=== PATIENT | male | born 1935 | race Caucasian/White ===

== ENCOUNTER 2020-11-01 06:24 | Day surgery (SDC) | payer OTHER, SELFPAY ==
[2020-11-01 06:44] VITALS: BP 167/82; PULSE 70; RESP 16; TEMP 36.2; O2SAT 97
--- NOTE | 2020-11-01 06:54 | ANES.PREOP_ITS ---
General Info Date of Service Date Performed: 11/01/20 Height: 5 ft 4.75 in Weight: 82.3 kg Body Mass Index (BMI): 30.4 Surgical Procedure: Operation Date: 11/01/20 07:40 Proposed Procedures Side Surgeon p Cataract Extraction with IOL Implant Left Bubba Bradshaw MD Meds Allergies and Home Medications Allergies Allergy/AdvReac Type Severity Reaction Status Date / Time atorvastatin AdvReac Intermediate JOINT PAIN Verified 11/01/20 06:41 Home Medication Medication Instructions Recorded zoster vaccine live (PF) [Zostavax 19,400 unit SQ ONCE #1 vial 09/28/16 Vial] Chromium Ricolinate 200 MG 1 tab PO DAILY 10/05/20 New Chapter Mens Multivitamin 1 tab PO DAILY 10/05/20 New Chapter Tumeric 1 tab PO DAILY 10/05/20 Tri-Flex 8557-7454-657-100-100 2 cap PO DAILY 10/05/20 ascorbic acid (vitamin C) 250 mg 500 mg PO DAILY tab 10/05/20 chewable tablet cholecalciferol (vitamin D3) 50 100 mcg PO DAILY cap 10/05/20 mcg (2,000 unit) capsule omega 6-lup-zie-fish oil 1,200 mg 2 cap PO DAILY cap 10/05/20 (144 mg-216 mg) capsule vitamin B complex-folic acid 50 1 tab PO DAILY tab 10/05/20 mcg tablet zinc 50 mg tablet 50 mg PO DAILY 10/05/20 Current Visit Medications: Current Medications Generic Name Dose Route Start Last Admin Trade Name Freq PRN Reason Stop Dose Admin Acetaminophen 1,000 mg 11/01/20 06:00 Acetaminophen 500 Mg Tab PO Q4H PRN PRN Miscellaneous Medication 0 ml 11/01/20 06:00 Prednisolone 1%, Moxifloxacin 0.5%, Nepafenac 0.1% 5ml Btl OS DIRECTED [facility] Miscellaneous Medication 0 ml 11/01/20 06:00 Tropicam./Phenyleph. 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 Diabetes mellitus 04/10/12 E11.9 Other and unspecified hyperlipidemia 09/04/12 E78.5 Primary malignant neoplasm of prostate 04/10/12 C61 Cataract H26.9 Nuclear sclerotic cataract of left eye H25.12 Medical History Medical History (Updated 11/01/20 @ 06:39 by Carlin Art) Diabetes insipidus Surgical History Surgical History (Updated 11/01/20 @ 06:40 by Carlin Art) History of cholecystectomy Tobacco Smoking/Tobacco Use Status: Former Tobacco Use Alcohol Alcohol Intake: never Substance Use Substance use: Never Substance use type: does not use Vital Signs and Lab Results Vital Signs Most Recent Vital Signs in EMR: Most Recent Vital Signs Temp Pulse Resp BP Pulse Ox 36.2 C L 70 16 167/82 H 97 11/01/20 06:44 11/01/20 06:44 11/01/20 06:44 11/01/20 06:44 11/01/20 06:44 Lab Results Blood Type / Crossmatch: No Data to Display Complete Blood Count: No Data to Display Complete Metabolic Panel: Hemoglobin A1c 9.4 % (4.5-5.7) H 10/05/20 15:40 10/05/20 Liver Function Panel: No Data to Display Coagulation Panel: No Data to Display Cardiac Panel: No Data to Display Arterial Blood Gas: No Data to Display Venous Blood Gas: No Data to Display Pancreas Panel: No Data to Display Thyroid Panel: 2 No Data to Display Infectious Disease: No Data to Display Blood Cultures: No Data to Display Toxicology Panel: No Data to Display Anesthesia Assessment and Plan Anesthesia History Personal History: No History of Anesthesia Complications Family History: No Family History of Anesthesia Complications Exercise Tolerance Exercise Tolerance: Metabolic Equivalents>4 Cardiac & Pulmonary Exam Cardiac Exam: Normal S1/S2 Heart Sounds Pulmonary Exam: Clear Bilateral Breath Sounds Airway Exam Known Difficult Airway: No Mallampati Class: 2 Mouth Opening: Normal (> 3cm) Thyromental Distance: Greater than 3 cm Neck Range of Motion: Limited ROM Neck Circumference: Thick Teeth Condition: Removable Dentures/Plates Lower ASA Classification ASA Score: ASA 2 Emergency Case?: No NPO Status NPO Status: NPO Clears >2 hours, Solids >8 hours Anesthesia Plan Resuscitation Status: Full Code Anesthesia Technique: MAC Anesthesia Airway Planned: Natural Airway Monitors Used: Standard Monitors
[2020-11-01] MEDS: Tropicam./Phenyleph. (1/2.5%) 5 ML BTL OS ×3 (07:00→07:10)
[2020-11-01 07:07] VITALS: BMI 30.4
--- NOTE | 2020-11-01 07:15 | W.ANESPOSTOP ---
Postoperative Evaluation Date, Time and Location Date Performed: 11/01/20 Time Performed: : Patient Location: Day Surgery Unit Vital Signs Most Recent Imported Vital Signs: Most Recent Vital Signs Temp Pulse Resp BP Pulse Ox 36.2 C L 70 16 167/82 H 97 11/01/20 06:44 11/01/20 06:44 11/01/20 06:44 11/01/20 06:44 11/01/20 06:44 Most Recent Manually Entered Vital Signs: Adult Blood Pressure: 167/82 Heart Rate: 70 Respirations: 18 Oxygen Saturation (%): 97 Temperature (C): 36.2 C Pain Score (0-10 Scale): 0 Pain Score Most Recent Pain Score: Most Recent Pain Score Pain Level 0 11/01/20 06:44 Assessment Mental Status: Awake (Alert & Oriented to Patient Baseline) Airway and Respiratory Function: Patent airway with normal (patient baseline) respiratory exam Cardiovascular Function: Hemodynamically Stable Hydration Status: Adequately Hydrated Nausea & Vomiting: No Nausea or Vomiting Pain: Pt. Denies Any Pain Peripheral Nerve Block: Patient did not receive a nerve block
[2020-11-01] MEDS: Lidocaine 2% Jelly 6 ML SYR (07:30)
[2020-11-01] MEDS: Balanced Salt Soln.-PLUS 500 ML BAG (07:30)
[2020-11-01] MEDS: Povidone-Iodine Ophth 30 ML BTL (07:30)
[2020-11-01] MEDS: Tetracaine 0.5% 4 ML BTL OS (07:31)
[2020-11-01] MEDS: Lidocaine 1% Pres-Free 5 ML VIAL (07:31)
[2020-11-01] MEDS: Duovisc Viscoelastic System EACH 1 EACH (07:32)
--- NOTE | 2020-11-01 08:02 | ROE_ITS ---
Date of service: 11/01/20 Time of Service: 08:03 Operative Note Operative Note DATE OF PROCEDURE: 11/01/20 POST-OP DIAGNOSIS: same PROCEDURE: Cataract extraction using phacoemulsification with intraocular lens implant, left eye SURGEON: Bubba Bradshaw ANESTHESIA TYPE: Local By Surgeon and MAC Refer to Anesthesia Record PATHOLOGY: none sent COMPLICATIONS: None Patient was transported to: same day Patient's condition: stable Implants: Sohail Clareon [id number] Indications: Progressive decreased vision due to cataract, left eye Procedure Description: CATARACT SURGERY OPERATIVE REPORT PREOPERATIVE DIAGNOSIS: Nuclear cataract, left eye POSTOPERATIVE DIAGNOSIS: Same OPERATION: Cataract extraction using phacoemulsification with posterior chamber intraocular lens implant, left eye. IOL: IOL Auto Tune Up Mechanic/Model: Sohail Clareon [id number] IOL Power: + 24.0 diopters IOL Serial Number: [id number] Optic Diameter: 6.0mm Haptic/Overall Diameter: 13.0mm PHACO INFO: Sohail Century Labsurion Vision System with OZil and Active Fluidics Cumulative Dispersed Energy (CDE): 15.82 seconds SURGEON: Bubba Bradshaw MD, LOREE ANESTHESIA: Monitored Anesthesia Care (MAC), with local sub-tenon's anesthetic infiltration COMPLICATIONS: None SPECIMENS: None INDICATIONS FOR PROCEDURE: The patient is an 84-year-old gentleman with history of diminished visual acuity in his left eye. He has a dense nuclear cataract that has been followed for several years. He is finally symptomatic enough that he desires cataract surgery and attempt to improve and maximize his vision. PROCEDURE: The correct surgical eye was identified and marked as the left eye and the pupil was dilated in the preoperative area using mydriatics and cycloplegics. The dilated pupil size was 7.0 mm. He elected to proceed without oral sedation. The patient was brought to the operating room where cardiopulmonary monitoring was instituted and surgical time-out was performed, confirming the correct operative eye and IOL power. Topical anesthesia was administered and ophthalmic povidone-iodine 5% was instilled into the conjunctival fornices. Lidocaine gel was applied to the cornea and the edvin-ocular area was prepped with Betadine 10% solution and draped in the usual sterile fashion for intraocular surgery, including an aperture drape. A Tegaderm transparent film dressing was cut in half and used to cover the lashes and lid margins. Care was taken to sequester the lashes and lid margins under the Tegaderm dressing. A lid speculum was placed between the lids of the operative eye and the Hillary-Philip operating microscope was maneuvered into position. Robe scissors were then used to make a conjunctival buttonhole approximately 6mm posterior to the limbus in the inferonasal quadrant. Blunt dissection was carried out to expose bare sclera, and a blunt-tipped sub-tenon?s anesthesia cannula was introduced and passed posteriorly along the globe where non- preserved plain lidocaine was injected into posterior sub-Tenon?s space. A sideport knife was used to make a paracentesis port superior/superiortemporally. Intraocular phenylephrine/lidocaine was injected into the anterior chamber. The anterior chamber was then filled with viscoelastic. A 2.4mm keratome knife was used to create a half-thickness groove at the limbus and then to construct a three-plane near-clear corneal tunnel extending 2.0mm into clear cornea in the temporal position. . A flap was raised on the anterior capsule and capsulorhexis forceps were used to complete a continuous curvilinear capsulorhexis of 5.0mm. Balanced salt solution was then used to perform cortical cleaving hydrodissec tion and nuclear hydrodelineation until the lens could be freely rotated within the capsular bag. The lens nucleus was then disassembled and removed within the capsular bag and iris plane using phacoemulsification. Residual cortical material was removed using the 45-degree angled silicone I/A tip with 0.3mm port. The posterior capsule was carefully polished to remove as much residual lens epithelial cells as safely possible. The capsular bag was then inflated and the anterior chamber deepened with viscoelastic. The lens implant described above was inserted into the capsular bag using the Sohail Autonome injector. A Kuglen hook was used to dial the IOL into position. Residual viscoelastic was then removed first from posterior to the IOL, then from the anterior chamber using the I/A handpiece. The lens implant was noted to center nicely within the capsular bag. The incisions were stromally hydrated, and the anterior chamber was reformed using BSS. Then 0.5cc of moxifloxacin 1.0mg/ml were injected into the capsular bag and anterior chamber. The incisions were checked with a Weck spear and found to be secure. Several drops of ophthalmic povidone-iodine 5% were then applied to the eye followed by two drops of Imprimis combination prednisolone/moxifloxacin/nepafenac solution. The drapes were removed and a clear plastic protective eye shield was placed over the eye. The patient was then returned to Same Day Surgery in stable condition.
--- NOTE | 2020-11-01 08:02 | W.PM.DSUDISC ---
Discharge Plan Disposition Patient Disposition: HOME Condition: Good Discharge Details Attending Provider: Bubba Bradshaw Primary Care Provider: Sarah Varela Home Meds and New Rx's Prescriptions: No Action New Chapter Mens Multivitamin 1 tab PO DAILY RF: 0 New Chapter Tumeric 1 tab PO DAILY RF: 0 Balanced B-50 Complex (folic) 50 mcg tablet 1 tab PO DAILY RF: 0 ascorbic acid (vitamin C) 250 mg tablet,chewable 500 mg PO DAILY RF: 0 cholecalciferol (vitamin D3) 50 mcg (2,000 unit) capsule 100 mcg PO DAILY RF: 0 omega 9-lhj-aju-fish oil [Fish Oil] 1,200 (144-216) mg capsule 2 cap PO DAILY RF: 0 Chromium Ricolinate 200 MG capsule 1 tab PO DAILY RF: 0 Tri-Flex 1716-8532-450-100-100 capsule 2 cap PO DAILY RF: 0 zinc 50 mg tablet 50 mg PO DAILY RF: 0 Zostavax (PF) 19,400 UNIT/0.65 ML suspension for reconstitution 19,400 unit SQ ONCE Qty: 1 RF: 0 Discharge Instructions Stand Alone Forms: Post-op Topical Cataract, Keshav Dykes (DSU) Discharge Orders Discharge Orders: Discharge Order (Routine); Ordered 11/01/20 Ordered By: Bubba Bradshaw DS: Diagnosis Discharge Diagnosis (1) Nuclear sclerotic cataract of left eye: Status: Resolved
[2020-11-01 08:18] VITALS: BP 142/76; PULSE 77; RESP 16; TEMP 36.6; O2SAT 95
[2020-11-01 08:21] VITALS: BP 167/82; PULSE 70; RESP 18; TEMPC 36.2; O2SAT 97
== END 2020-11-01 08:28 | disposition home or self-care (01) ==
PROVIDERS: PCP Nurse Practitioner; Visit Provider Ophthalmology
PROC: (CPT 66984; principal; 2020-11-01 07:30)
DX: H25.12 Age-related nuclear cataract, left eye (principal)
CPT/HCPCS: 66984; V2632

== ENCOUNTER 2020-11-15 07:15 | Day surgery (SDC) | payer OTHER, SELFPAY ==
[2020-11-15] MEDS: Tropicam./Phenyleph. (1/2.5%) 5 ML BTL OD ×3 (07:41→07:53)
[2020-11-15 07:49] VITALS: BP 138/90; PULSE 73; RESP 16; TEMP 35.8; O2SAT 99
--- NOTE | 2020-11-15 08:01 | W.ANESPRE ---
General Info Date of Service Date Performed: 11/15/20 Height: 5 ft 4.75 in Weight: 79.4 kg Body Mass Index (BMI): 29.3 Surgical Procedure: Operation Date: 11/15/20 09:40 Proposed Procedures Side Surgeon p Cataract Extraction with IOL Implant Right Bubba Bradshaw MD Meds Allergies and Home Medications Allergies Allergy/AdvReac Type Severity Reaction Status Date / Time atorvastatin AdvReac Intermediate JOINT PAIN Verified 11/15/20 07:41 Home Medication Medication Instructions Recorded zoster vaccine live (PF) [Zostavax 19,400 unit SQ ONCE #1 vial 09/28/16 Vial] Chromium Ricolinate 200 MG 1 tab PO DAILY 10/05/20 New Chapter Mens Multivitamin 1 tab PO DAILY 10/05/20 New Chapter Tumeric 1 tab PO DAILY 10/05/20 Tri-Flex 8496-8689-115-100-100 2 cap PO DAILY 10/05/20 ascorbic acid (vitamin C) 250 mg 500 mg PO DAILY tab 10/05/20 chewable tablet cholecalciferol (vitamin D3) 50 100 mcg PO DAILY cap 10/05/20 mcg (2,000 unit) capsule omega 7-mfc-qfm-fish oil 1,200 mg 2 cap PO DAILY cap 10/05/20 (144 mg-216 mg) capsule vitamin B complex-folic acid 50 1 tab PO DAILY tab 10/05/20 mcg tablet zinc 50 mg tablet 50 mg PO DAILY 10/05/20 Current Visit Medications: Current Medications Generic Name Dose Route Start Last Admin Trade Name Freq PRN Reason Stop Dose Admin Acetaminophen 1,000 mg 11/15/20 06:00 Acetaminophen 500 Mg Tab PO Q4H PRN PRN Miscellaneous Medication 0 ml 11/15/20 06:00 Prednisolone 1%, Moxifloxacin 0.5%, Nepafenac 0.1% 5ml Btl OD DIRECTED [facility] Miscellaneous Medication 0 ml 11/15/20 06:00 11/15/20 07:53 Tropicam./Phenyleph. 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 Diabetes mellitus 04/10/12 E11.9 Other and unspecified hyperlipidemia 09/04/12 E78.5 Primary malignant neoplasm of prostate 04/10/12 C61 Cataract H26.9 Nuclear sclerotic cataract of left eye H25.12 Nuclear sclerotic cataract of right eye H25.11 Medical History Medical History Diabetes insipidus History of prostate cancer 2011 Surgical History Surgical History History of cataract surgery History of cholecystectomy Tobacco Smoking/Tobacco Use Status: Former Tobacco Use Alcohol Alcohol Intake: never Substance Use Substance use: Never Substance use type: does not use Vital Signs and Lab Results Vital Signs Most Recent Vital Signs in EMR: Most Recent Vital Signs Temp Pulse Resp BP Pulse Ox 35.8 C L 73 16 138/90 99 11/15/20 07:49 11/15/20 07:49 11/15/20 07:49 11/15/20 07:49 11/15/20 07:49 Point of Care Results Point of Care Results: Finger Stick Blood Glucose 206 11/15/20 07:35 Lab Results Blood Type / Crossmatch: No Data to Display Complete Blood Count: No Data to Display Complete Metabolic Panel: No Data to Display Liver Function Panel: No Data to Display Coagulation Panel: No Data to Display Cardiac Panel: No Data to Display Arterial Blood Gas: No Data to Display Venous Blood Gas: No Data to Display Pancreas Panel: No Data to Display Thyroid Panel: No Data to Display Infectious Disease: No Data to Display Blood Cultures: No Data to Display Toxicology Panel: No Data to Display Anesthesia Assessment and Plan Anesthesia History Personal History: No History of Anesthesia Complications Family History: No Family History of Anesthesia Complications Exercise Tolerance Exercise Tolerance: Metabolic Equivalents>4 Pertinent Negatives Pertinent Negatives: No Symptoms of GERD, No Major Cardiovascular Symptoms or Complaints and No Major Pulmonary Symptoms or Complaints Cardiac & Pulmonary Exam Cardiac Exam: Normal S1/S2 Heart Sounds Pulmonary Exam: Clear Bilateral Breath Sounds Airway Exam Known Difficult Airway: No Mallampati Class: 2 Mouth Opening: Normal (> 3cm) Thyromental Distance: Greater than 3 cm Neck Range of Motion: Limited ROM Neck Circumference: Thick Teeth Condition: Removable Dentures/Plates Lower ASA Classification ASA Score: ASA 2 Emergency Case?: No NPO Status NPO Status: NPO Clears >2 hours, Solids >8 hours Anesthesia Plan Resuscitation Status: Full Code Anesthesia Technique: MAC Anesthesia Airway Planned: Natural Airway Monitors Used: Standard Monitors
[2020-11-15 08:13] VITALS: BMI 29.3
[2020-11-15] MEDS: Lidocaine 2% Jelly 6 ML SYR (08:56)
[2020-11-15] MEDS: Tetracaine 0.5% 4 ML BTL OD (08:56)
[2020-11-15] MEDS: Povidone-Iodine Ophth 30 ML BTL (08:56)
[2020-11-15] MEDS: Lidocaine 1% Pres-Free 5 ML VIAL (09:03)
[2020-11-15] MEDS: Duovisc Viscoelastic System EACH 1 EACH (09:09)
[2020-11-15] MEDS: Balanced Salt Soln.-PLUS 500 ML BAG (09:09)
--- NOTE | 2020-11-15 09:28 | W.PM.DSUDISC ---
Discharge Plan Disposition Patient Disposition: HOME Condition: Good Discharge Details Reason For Visit: CATARACT Attending Provider: Bubba Bradshaw Primary Care Provider: Sarah Varela Home Meds and New Rx's Prescriptions: No Action New Chapter Mens Multivitamin 1 tab PO DAILY RF: 0 New Chapter Tumeric 1 tab PO DAILY RF: 0 Balanced B-50 Complex (folic) 50 mcg tablet 1 tab PO DAILY RF: 0 ascorbic acid (vitamin C) 250 mg tablet,chewable 500 mg PO DAILY RF: 0 cholecalciferol (vitamin D3) 50 mcg (2,000 unit) capsule 100 mcg PO DAILY RF: 0 omega 1-kmt-owx-fish oil [Fish Oil] 1,200 (144-216) mg capsule 2 cap PO DAILY RF: 0 Chromium Ricolinate 200 MG capsule 1 tab PO DAILY RF: 0 Tri-Flex 1613-8506-609-100-100 capsule 2 cap PO DAILY RF: 0 zinc 50 mg tablet 50 mg PO DAILY RF: 0 Zostavax (PF) 19,400 UNIT/0.65 ML suspension for reconstitution 19,400 unit SQ ONCE Qty: 1 RF: 0 Discharge Instructions Stand Alone Forms: Post-op Topical Cataract, Keshav Dykes (DSU) Discharge Orders Discharge Orders: Discharge Order (Routine); Ordered 11/15/20 Ordered By: Bubba Bradshaw
--- NOTE | 2020-11-15 09:29 | ROE_ITS ---
Date of service: 11/15/20 Time of Service: 09:29 Operative Note Operative Note DATE OF PROCEDURE: 11/15/20 PRE-OP DIAGNOSIS: Nuclear cataract, right eye POST-OP DIAGNOSIS: same PROCEDURE: Cataract extraction using phacoemulsification with intraocular lens implant, right eye SURGEON: Bubba Bradshaw ANESTHESIA TYPE: Local By Surgeon and MAC Refer to Anesthesia Record ESTIMATED BLOOD LOSS: 0 PATHOLOGY: none sent COMPLICATIONS: None Patient was transported to: same day Patient's condition: stable Implants: Sohail Clareon [id number] Indications: Progressive decreased vision due to cataract, right eye Procedure Description: CATARACT SURGERY OPERATIVE REPORT PREOPERATIVE DIAGNOSIS: Nuclear cataract, right eye POSTOPERATIVE DIAGNOSIS: Same OPERATION: Cataract extraction using phacoemulsification with posterior chamber intraocular lens implant, right eye. IOL: IOL Mentally Retarded Teacher/Model: Sohail Clareon [id number] IOL Power: + 25.5 diopters IOL Serial Number: [id number] Optic Diameter: 6.0mm Haptic/Overall Diameter: 13.0mm PHACO INFO: SohailThird Millennium Material[employer]ion Vision System with OZil and Active Fluidics Cumulative Dispersed Energy (CDE): 17.46 seconds SURGEON: Bubba Bradshaw MD, LOREE ANESTHESIA: Monitored Anesthesia Care (MAC), with local sub-tenon's anesthetic infiltration COMPLICATIONS: None SPECIMENS: None INDICATIONS FOR PROCEDURE: The patient is an 84-year-old gentleman with history of diminished visual acuity in both eyes secondary to the development of dense bilateral nuclear cataract. He has shallow anterior chambers and narrow anterior chamber angles. He has already undergone cataract surgery in the left eye and is doing well postoperatively. He now presents for cataract surgery in the right eye. PROCEDURE: The correct surgical eye was identified and marked as the right eye and the pupil was dilated in the preoperative area using mydriatics and cycloplegics. The dilated pupil size was 6.5 mm. He elected to proceed without oral sedation. The patient was brought to the operating room where cardiopulmonary monitoring was instituted and surgical time-out was performed, confirming the correct operative eye and IOL power. Topical anesthesia was administered and ophthalmic povidone-iodine 5% was instilled into the conjunctival fornices. Lidocaine gel was applied to the cornea and the edvin-ocular area was prepped with Betadine 10% solution and draped in the usual sterile fashion for intraocular surgery, including an aperture drape. A Tegaderm transparent film dressing was cut in half and used to cover the lashes and lid margins. Care was taken to sequester the lashes and lid margins under the Tegaderm dressing. A lid speculum was placed between the lids of the operative eye and the Hillary-Philip operating microscope was maneuvered into position. Robe scissors were then used to make a conjunctival buttonhole approximately 6mm posterior to the limbus in the inferonasal quadrant. Blunt dissection was carried out to expose bare sclera, and a blunt-tipped sub-tenon?s anesthesia cannula was introduced and passed posteriorly along the globe where non- preserved plain lidocaine was injected into posterior sub-Tenon?s space. A sideport knife was used to make a paracentesis port inferiortemporally. Intraocular phenylephrine/lidocaine was injected into the anterior chamber. The anterior chamber was then filled with viscoelastic. A 2.4mm keratome knife was used to create a half-thickness groove at the limbus and then to construct a three-plane near-clear corneal tunnel extending 2.0mm into clear cornea in the superiortemporal position. . A flap was raised on the anterior capsule and capsulorhexis forceps were used to complete a continuous curvilinear capsulorhexis of 4.8 mm. The anterior chamber was noted to be quite shallow. Balanced salt solution was then used to perform cortical cleaving hydrodissection and nuclear hydrodelineation until the lens could be freely rotated within the capsular bag. The lens nucleus was then disassembled and r emoved within the capsular bag and iris plane using phacoemulsification. Additional viscoelastic was injected into the anterior chamber to protect the corneal endothelium during nucleus removal. Residual cortical material was removed using the I/A handpiece. The posterior capsule was carefully polished to remove as much residual lens epithelial cells as safely possible. The capsular bag was then inflated and the anterior chamber deepened with viscoelastic. The lens implant described above was inserted into the capsular bag using the Sohail Autonome Injector. A Kuglen hook was used to dial the IOL into position. Residual viscoelastic was then removed first from posterior to the IOL, then from the anterior chamber using the I/A handpiece. The lens implant was noted to center nicely within the capsular bag. The incisions were stromally hydrated, and the anterior chamber was reformed using BSS. Then 0.5cc of moxifloxacin 1.0mg/ml were injected into the capsular bag and anterior chamber. The incisions were checked with a Weck spear and found to be secure. Several drops of ophthalmic povidone-iodine 5% were then applied to the eye followed by two drops of Imprimis combination prednisolone/moxifloxacin/nepafenac solution. The drapes were removed and a clear plastic protective eye shield was placed over the eye. The patient was then returned to Same Day Surgery in stable condition.
[2020-11-15 09:34] VITALS: BP 126/81; PULSE 71; RESP 18; TEMP 36.1; O2SAT 96
--- NOTE | 2020-11-16 09:13 | W.ANESPOSTOP ---
Postoperative Evaluation Date, Time and Location Date Performed: 11/16/20 Time Performed: 09:13 Patient Location: Day Surgery Unit Vital Signs Most Recent Imported Vital Signs: Most Recent Vital Signs Temp Pulse Resp BP Pulse Ox 36.1 C L 71 18 126/81 96 11/15/20 09:34 11/15/20 09:34 11/15/20 09:34 11/15/20 09:34 11/15/20 09:34 Pain Score Most Recent Pain Score: Most Recent Pain Score Pain Level 0 11/15/20 09:34 Assessment Mental Status: Awake (Alert & Oriented to Patient Baseline) Airway and Respiratory Function: Patent airway with normal (patient baseline) respiratory exam Cardiovascular Function: Hemodynamically Stable Hydration Status: Adequately Hydrated Nausea & Vomiting: No Nausea or Vomiting Pain: Pt. Denies Any Pain Peripheral Nerve Block: Patient did not receive a nerve block
== END 2020-11-15 09:40 | disposition home or self-care (01) ==
PROVIDERS: PCP Nurse Practitioner; Visit Provider Ophthalmology
PROC: (CPT 66984; principal; 2020-11-15 09:30)
DX: H25.11 Age-related nuclear cataract, right eye (principal)
CPT/HCPCS: 66984; V2632

== ENCOUNTER 2024-11-07 13:12 | Emergency (ER) | payer MEDICARE, SELFPAY ==
[2024-11-07] VITALS (44 sets, daily range): BP systolic 89–138; BP diastolic 37–86; PULSE 79–111; RESP 12–20; TEMP 37.5–38.6; O2SAT 94–99
--- NOTE | 2024-11-07 13:15 | RT.EKG_ITS ---
APPROVED REPORT Exam: Resting ECG Reason for Exam: dizziness Patient Location: E HR:108 bpm ECG Measurements Heart Rate [address] 191 P 62 QRSd 140 QRS -72 QT 350 T 36 QTc 471 Conclusion Sinus tachycardia...rate> 99 Right bundle branch block...QRSd>120, terminal axis(90,270)
--- NOTE | 2024-11-07 13:43 | W.ED.GENAD ---
Discharge Plan Discharge Details Chief Complaint: Dizzy/Sync Primary Care Provider: Sola,Local ED Provider: Faiza Mosquera Home Meds and New Rx's Prescriptions: No Action New Chapter Mens Multivitamin 1 tab PO DAILY New Chapter Tumeric 1 tab PO DAILY Balanced B-50 Complex (folic) 50 mcg tablet 1 tab PO DAILY Patient Comments: [facility] Brand ascorbic acid (vitamin C) 250 mg tablet,chewable 500 mg PO DAILY cholecalciferol (vitamin D3) 50 mcg (2,000 unit) capsule 100 mcg PO DAILY Patient Comments: [facility] Brand omega 4-tva-txj-fish oil [Fish Oil] 1,200 (144-216) mg capsule 2 cap PO DAILY Chromium Ricolinate 200 MG capsule 1 tab PO DAILY Tri-Flex [id number] capsule 2 cap PO DAILY zinc 50 mg tablet 50 mg PO DAILY Zostavax (PF) 19,400 UNIT/0.65 ML suspension for reconstitution 19,400 unit SQ ONCE Qty: 1 Rx Instructions: and administer, please tamsulosin [Flomax] 0.4 mg capsule 0.4 mg PO DAILY gabapentin 300 mg capsule 300 mg PO BID metformin 500 mg tablet 500 mg PO BID HPI General Date/Time Provider Initiated Documentation: 11/07/24 13:25. Limitations to Documentation: no limitations. Information obtained by: patient, family () and RN notes reviewed. History of Present Illness 88 year old M presents to the emergency department with the chief complaint of pre-syncope, weakness, general unwell, described as moderate and similar to prior episodes (hx of ICH and similar prsentation with covid), Patient started experiencing this hour(s) (1) and it has been constant. No relieving factors improve symptom(s), No exacerbating factors reported . Patient notes diaphoresis, malaise and weakness; denies chest pain, cough, fever/chills, headaches, loss of appetite, nausea/vomiting, rash, seizure, shortness of breath and syncope. Patient did receive the following treatments prior to arrival, none Related Data Home Medications ?Medication ?Instructions ?Recorded ?Confirmed zoster vaccine live (PF) 19,400 19,400 unit SQ ONCE #1 vial 09/28/16 11/07/24 unit/0.65 mL subcutaneous suspension (Zostavax (PF)) Held on 11/07/24. Instructions: Pt Stopped/Never Started Chromium Ricolinate 200 MG 1 tab PO DAILY 10/05/20 11/07/24 Held on 11/07/24. Instructions: Pt Stopped/Never Started New Chapter Mens Multivitamin 1 tab PO DAILY 10/05/20 11/07/24 New Chapter Tumeric 1 tab PO DAILY 10/05/20 11/07/24 Held on 11/07/24. Instructions: Pt Stopped/Never Started Tri-Flex [id number] 2 cap PO DAILY 10/05/20 11/07/24 ascorbic acid (vitamin C) 250 mg 500 mg PO DAILY 10/05/20 11/07/24 chewable tablet cholecalciferol (vitamin D3) 50 100 mcg PO DAILY 10/05/20 11/07/24 mcg (2,000 unit) capsule omega 5-uqm-ybo-fish oil 1,200 mg 2 cap PO DAILY 10/05/20 11/07/24 (144 mg-216 mg) capsule (Fish Oil) Held on 11/07/24. Instructions: Pt Stopped/Never Started vitamin B complex-folic acid 50 1 tab PO DAILY 10/05/20 11/07/24 mcg tablet (Balanced B-50 Complex (with folic acid)) zinc 50 mg tablet 50 mg PO DAILY 10/05/20 11/07/24 Held on 11/07/24. Instructions: Pt Stopped/Never Started gabapentin 300 mg capsule 300 mg PO BID 11/07/24 11/07/24 metformin 500 mg tablet 500 mg PO BID 11/07/24 11/07/24 tamsulosin 0.4 mg capsule (Flomax) 0.4 mg PO DAILY 11/07/24 11/07/24 Allergies Allergy/AdvReac Type Severity Reaction Status Date / Time atorvastatin AdvReac Intermediate JOINT PAIN Verified 11/15/20 07:41 General Stated Complaint: Dizzy/Sync GUY: 2 Review of Systems Constitutional Constitutional: Reports as per HPI, Denies chills and Denies fever(s) Eyes Eyes: Reports as per HPI, Denies blurry vision and Denies change in vision ENT Ears, Nose, Mouth, and Throat: Denies neck pain Cardiovascular Cardiovascular: Reports as per HPI, Denies chest pain, Denies lightheadedness, Denies radiating jaw, neck or arm pain, Denies dyspnea and Denies dyspnea on exertion Respiratory Respiratory: Reports as per HPI, Denies chest congestion, Denies cough, Denies dyspnea and Denies dyspnea on exertion Gastrointestinal Gastrointestinal: Reports as per HPI, Denies abdominal pain, Denies change in bowel habits, Denies nausea and Denies vomiting Genitourinary Genitourinary: Reports system reviewed and no additional complaints, except as documented (denies change in urinary habits) Musculoskeletal Musculoskeletal: Reports as per HPI, Denies back pain, Denies myalgias, Denies muscle cramps, Denies neck pain and Denies numbness Integumentary/Breasts Skin/Breast: Reports as per HPI and Denies rash Neurologic Neurologic: Reports as per HPI, Denies abnormal movements, Denies abnormal speech, Denies behavioral changes, Denies confusion, Denies localized weakness, Denies numbness and Denies sensory deficit Psychiatric Psychiatric: Denies behavioral changes and Denies confusion Exam Const General: cooperative, not healthy appearing, no acute distress, well developed, well groomed, diaphoretic and ill appearing acutely Nutritional Appearance: average body habitus and well nourished Orientation: alert, awake and oriented x3 [facility] Head: normal to inspection, no palpable skull fracture, normocephalic and atraumatic Ears: hearing grossly normal bilaterally, external ears normal and TM's normal bilaterally General nose exam: external nose normal Mouth: oral mucosae normal and moist mucous membranes Throat: posterior oropharynx normal Eyes General: appearance normal, both eyes and all related structures Alignment and Position: alignment normal Periorbital: periorbital findings normal Eyelids: eyelids normal Sclera: sclerae normal Cornea: corneas normal Pupils: PERRL EOM: EOM intact bilaterally Neck Neck: normal visual inspection, full ROM, no lymphadenopathy and no meningeal signs Resp Effort & Inspection: normal respiratory effort, able to speak in complete sentences and no respiratory distress Auscultation: clear to auscultation bilaterally, no rales, no rhonchi and no wheezes Cardio Rate: regular rate Rhythm: regular rhythm Heart Sounds: S1 normal and S2 normal Back/Spine/Pelvis Cervical Spine: normal cervical lordosis and cervical ROM normal Skin General skin exam: no rashes or lesions noted Neuro General: patient alert, patient awake and patient oriented x3 Cranial Nerves: CN's II-XI intact bilaterally Cognition: normal cognition Speech: speech normal Motor: strength not 5/5 throughout (weak in LLE), no pronator drift, no fasciculations, fasciculations (when ttrying to sit up and hold himself, lists to the left) and no pronator drift noted Sensory Exam: no sensory deficits noted Coordination: [id number] test normal, sways with eyes open (sways in seated position) and rapid alternating movement UE normal Extrem General: normal to inspection, capillary refill normal, no pedal edema and no calf tenderness Course Vital Signs Vital signs: Vital Signs Temperature 38.6 C H 11/07/24 13:19 Pulse 107 H 11/07/24 13:19 Respiratory Rate 12 11/07/24 13:19 Blood Pressure 123/76 11/07/24 13:19 Pulse Oximetry 94 11/07/24 13:19 Temperature 38.6 C H 11/07/24 13:19 Temperature Source Oral 11/07/24 13:19 Pulse 107 H 11/07/24 13:19 Respiratory Rate 12 11/07/24 13:19 Blood Pressure 123/76 11/07/24 13:19 Blood Pressure Position Sitting 11/07/24 13:19 Pulse Oximetry 94 11/07/24 13:19 Oxygen Delivery Method Room Air 11/07/24 13:19 Oxygen Flow Rate 0 11/07/24 13:19 Medical Decision Making Patient is a pleasant 88 year old male, brought in by his , with c/c of pre-syncope that began about one hour prior arrival. They report that he was in a grocery store, went to use the restroom and suddenly felt lightheaded. Originally had described some vertiginous-like symptoms but now stating it was more lightheaded like presyncopal. No palpitations or chest pain. Denies any shortness of breath. Became diaphoretic, was able to ambulate out of the bathroom and felt that he looked unwell prompting him to come here. They do report that he has had similar episodes in the past. 1 time he had such an episode he was diagnosed with COVID. Patient also had initially was reported as a spontaneous intracranial hemorrhage a few months ago while in [place], further described as having a UTI with hypertensive emergency. Not completely clear on the history. He denies any headache. No visual changes. He has not noticed any weakness but does state that his balance has been off. However, patient does report that he has had some chronic balance issues but has noted this was worse since the onset of presyncopal seat symptoms about 1 hour prior to arrival. On exam, patient is diaphoretic. He was initially reported to be febrile, rechecked and found to be normal. He does not feel hot to the touch. I did question if he may have had a slight facial droop as the left side of his mouth did seem to come up slightly higher than the right but his reports that this appears normal for him. However, patient does have notable weakness in the left lower extremity than on the right. Has difficulty raising the left off of the bed. When having the patient in a seated position in bed, he also tends to lift to the left and has some jerky fasciculations in bilateral lower extremities. Appears to be working to stay in an upright position. Patient is alert and oriented, communicating well. He does not appear septic. He is not endorsing any recent illness or sick contacts. No change in urinary or bowel habits. Patient does not have any back pain. No abdominal pain. No saddle paresthesias or sensory deficits appreciated. Coordination of the upper extremities is intact. Unclear exactly what is driving his sudden onset of symptoms but the objective findings on my neurologic exam having primarily concern for CVA at this time. With his recent history of ICH, not completely clear on the etiology of this, I am primarily concerned for a hemorrhagic stroke and will move forward with a noncontrast head CT to start. Will obtain labs, EKG. Without any chest discomfort or shortness of breath, find unlikely to be something like ACS, particularly as the patient has not had any symptoms leading up to this. However, will obtain troponins out of abundance of caution, particularly given the patient's diaphoresis and presyncope. ECG was reviewed by Dr. Blackwell. Patient is right bundle branch block, heart rate 108. No evidence to suggest a STEMI. CT reviewed by radiologist: MPRESSION: 1. No acute intracranial process. 2. If there is continued clinical concern, a noncontrast MRI of the brain should be considered for further evaluation. Labs reviewed. No leukocytosis. Stable H&H. CMP without significant abnormality. Glucose is slightly elevated, patient does have a history of diabetes and is on metformin. Troponin within normal limits x 2. Patient reevaluated after CT- no acute bleeding noted. Patient ambulated to the bathroom with myself. the weakness initially appreciated in the LLE has since resolved, he is feeling improved. If this is more central, concern for TIA rather than CVA. No longer eligible for lytics. Radiologist recommends MR if further workup needed- will try to get this completed today. At the end of my shift, care transitioned to oncoming clinician with MRI pending. Patient was negative for flu and COVID. Urinalysis is also pending. He remains hemodynamically stable and has neurologically improved. Likely will require admission for TIA evaluation should no other source be noted. 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 Surgical History (Updated 11/15/20 @ 09:29 by Bubba Bradshaw MD) History of cataract surgery History of cholecystectomy Social History (Updated 10/05/20 @ 15:59 by Fiona Logan RN) Smoking/Tobacco Use Status: Former Tobacco Use Quit Date: 04/16/57 Smoking risk assessment performed?: Yes Alcohol Intake: never Drug use: Never Substance use type: does not use Adopted: No Caregiver/Support person: No Foster care: No Household members: spouse Housing: house Number of Children: 4 number of grandchildren: 7 Education Level: high school current occupation: Retired Pets and animals: No Sexually active: No Current gender identity: male What is your relationship status?: How often do you talk on the phone with friends or family?: three or more times per week How often do you get together with friends or relatives?: twice per week Do you belong to any clubs or organized social groups?: no Panel score (0-1 are the most socially isolated patients): 2 What type of physical activity do you participate in: walking Duration: 15-30 minutes/day Special katelynn needs: No Seatbelt use: always Do you feel safe at home: Yes Do you feel safe in your relationship?: Yes
--- NOTE | 2024-11-07 13:45 | DI.CT_ITS ---
Exam(s) CT HEAD - STROKE PROTOCOL EXAM: CT HEAD - STROKE PROTOCOL CLINICAL HISTORY: left leg weakness, hx of bleed. TECHNIQUE: Imaging Protocol: Axial computed tomography images with coronal and sagittal reformatted images were created and reviewed COMPARISON: No exams were available for comparison FINDINGS: Ventricles and Extra axial spaces: Normal in size and morphology for the patient's age. Hemorrhage: None. Cerebral parenchyma: There is an area of encephalomalacia involving the left occipital lobe. There are areas of decreased attenuation in the white matter consistent with chronic microvascular ischemic disease. There is an old lacunar in for in the left basal ganglia. No acute territorial infarct is seen. No acute mass effect is present. Midline shift: None. Brainstem/Cerebellum: Normal. Calvarium: Normal. Visualized Paranasal sinuses/Mastoids: Clear. Soft Tissues: Unremarkable. IMPRESSION: 1. No acute intracranial process. 2. If there is continued clinical concern, a noncontrast MRI of the brain should be considered for further evaluation. RADIATION DOSE DELIVERED: 854.22mGy.cm Total DLP DATA REPOSITORY: All CT scans at this facility are submitted to the National Radiology Data Registry (NRDR) Dose Index Registry (DIR) with the [employer] (A[employer]). RADIATION OPTIMIZATION: All CT scans at this facility use at least one of these dose optimization techniques: automated exposure control; mA and/or kV adjustment per patient size (includes targeted exams where dose is matched to clinical indication); or iterative reconstruction.
--- NOTE | 2024-11-07 13:45 | DI.RAD_ITS ---
Exam(s) XR CHEST 2V PA LATERAL EXAM: XR CHEST 2V PA LATERAL CLINICAL HISTORY: weak, unwell TECHNIQUE: 2D digital imaging was performed of the chest. Two images were obtained. PA and lateral views were obtained. COMPARISON: No exams were available for comparison FINDINGS: MEDIASTINUM: Normal. HEART: Normal. PULMONARY VASCULATURE: Normal. LUNGS: There are no focal consolidating infiltrates present. PLEURAL SPACE: No pleural effusion or pneumothorax. BONE:Within normal limits for the patient's age. OTHER FINDINGS:Normal. IMPRESSION: No acute pulmonary findings. DATA REPOSITORY: RADIATION DOSE DELIVERED:
[2024-11-07 14:22] LABS: Abs Immature Grans 0.04 10^3/uL (0.0-0.06); HCT 40.1 % (40.0-50.0); HGB 13.9 g/dL (13.5-17.5); Immature Grans % 0.4 %; MCH 29.9 pg (27.0-33.0); MCHC 34.7 % (32.0-36.0); MCV 86 fL (80-95); MPV 9.5 fL (8.0-11.0); Platelet Count 139 10^3/uL (130-400); RBC 4.65 10^6/uL (4.36-5.78); RDW 13.4 % (11.8-14.1); RDW-SD 42.4 fL; WBC 9.42 10^3/uL (4.4-10.8)
[2024-11-07 14:42] LABS: ALT 22 U/L (16-63); AST 16 U/L (15-37); Albumin 3.7 g/dL (3.4-5.0); Alkaline Phosphatase 79 U/L (46-116); Anion Gap 8.2 mmol/L (3-11); BUN 24 mg/dL (7-18); Bilirubin, Total 1.1 mg/dL (0.2-1.0); CO2 26.8 mmol/L (21.0-32.0); Calcium 9.1 mg/dL (8.5-10.1); Chloride 102 mmol/L (98-107); Estimated GFR 53.50 (mL/min/1.73m2); Glucose 176 mg/dL (74-106); Magnesium 1.8 mg/dL (1.8-2.4); Potassium 4.1 mmol/L (3.5-5.1); Sodium 137 mmol/L (136-145); Total Protein 7.2 g/dL (6.4-8.2); Troponin I 35 ng/L (<or=76)
--- NOTE | 2024-11-07 15:00 | DI.MRI_ITS ---
Exam(s) MR BRAIN WO EXAM: MR BRAIN WO CLINICAL HISTORY: left leg weakness, unwell, hx bleed TECHNIQUE: Multiplanar multisequence MRI of the brain was performed. COMPARISON: CT CT HEAD - STROKE PROTOCOL from 11/07/2024 FINDINGS: VENTRICLES AND EXTRA AXIAL SPACES: Normal in size and morphology for the patient's age. MIDLINE SHIFT: None. CEREBRAL PARENCHYMA: There is an area of encephalomalacia involving the left occipital lobe. There are multiple areas of hyperintense T2 signal in the white matter on the FLAIR and T2 weighted images consistent with chronic microvascular ischemic disease. There is no evidence of an acute infarct. No space-occupying lesion identified. HEMORRHAGE: There are areas of dark signal on the gradient images consistent with prior remote hemorrhage. BRAINSTEM/CEREBELLUM: Normal. CALVARIUM: Normal. VISUALIZED PARANASAL SINUSES/MASTOIDS:Clear. FOND DU LAC OF [place]: Normal flow void. PITUITARY GLAND: Unremarkable. OTHER FINDINGS: None. IMPRESSION: 1. No evidence of an acute territorial infarct. 2. Left occipital encephalomalacia. 3. Findings consistent with chronic microvascular ischemic disease. DATA REPOSITORY:
[2024-11-07] MEDS: Lactated Ringers 1,000 ML 500 ML IV (15:26)
[2024-11-07 15:35] LABS: Troponin I 40 ng/L (<or=76)
[2024-11-07 17:07] LABS: Glucose Negative (Negative)
[2024-11-07 17:13] LABS: C & S Indicated? Yes; RBC Negative HPF (0-2)
[2024-11-07 17:34] LABS: Troponin I 48 ng/L (<or=76)
--- NOTE | 2024-11-08 15:59 | NUR.NOTE ---
Accessed Pt chart to obtain V # for a referral that Lina Restrepo would like put in.
--- NOTE | 2024-11-15 11:06 | NUR.NOTE ---
Access chart to reconcile EKG orders in [facility] to EKG's in [facility]. Duplicate order cancelled. Nursing Note:
== END 2024-11-07 19:24 | disposition home or self-care (01) ==
PROVIDERS: Physician Assistant; Emergency Provider Physician Assistant
DX: R42 Dizziness and giddiness (principal); I95.1 Orthostatic hypotension; R50.9 Fever, unspecified; E11.9 Type 2 diabetes mellitus without complications
CPT/HCPCS: 99284 ×2; 36415; 36416; 82962; 80053; 93005; 96360; 96361; 70450; 70551; 71046; 81003; 81015; 83735; 84484; 85025; 87086; 93010